=== PATIENT | male | born 2000 | race Hispanic/Latino ===

== ENCOUNTER 2020-03-05 17:40 | Emergency (ER) | payer SELFPAY ==
[~2020-03-05 17:40] MED LIST: Iopamidol-370 76% 500 ML 1 ML ONE
[2020-03-05] MEDS ORDERED: Ibuprofen 200 MG TAB ONE (18:14)
[2020-03-05 18:31] LABS: ALT (SGPT) 16 U/L (8-55); AST (SGOT) 11 U/L (10-45); Albumin 5.1 g/dL (3.5-5.0); Alkaline Phosphatase 89 U/L (50-130); Anion Gap 13 mmol/L (10-20); BUN (Urea Nitrogen) 9 mg/dL (8.4-21.0); Calc. Creatinine Clearance 0 mL/min (70-130); Calcium 9.6 mg/dL (7.8-10.44); Carbon Dioxide 27 mmol/L (22-29); Chloride 103 mmol/L (98-107); Estimated GFR-MDRD Greater than 90; Globulin 3.3 g/dL (2.4-3.5); Glucose 104 mg/dL (70-105); Lipase 22 U/L (8-78); Potassium 3.5 mmol/L (3.5-5.1); Protein, Total 8.4 g/dL (6.0-8.3); Sodium 139 mmol/L (136-145)
--- NOTE | 2020-03-05 18:51 | CT ---
CT ABDOMEN AND PELVIS WITH IV CONTRAST: 03/05/20 INDICATIONS: Abdominal pain. Diarrhea and fever. Comparison made to prior CT abdomen of 03/02/17. FINDINGS: The lung bases are clear. The liver, spleen, and pancreas unremarkable. Adrenal glands appear unremarkable. Horseshoe kidney is again noted which was described on the prior exam. There is no hydronephrosis. Ur inary bladder unremarkable. Small bowel loops normal caliber. The appendix appears normal. Colon unremarkable. No adenopathy or f ree fluid. No mass. Osseous structures unremarkable. IMPRESSION: 1. Horseshoe kidney again noted. 2. No acute process. POS: AGW
[2020-03-05 18:52] LABS: Hemoglobin 15.3 g/dL (14.0-18.0); Mean Corpuscular HGB CONC 34.6 g/dL (32.0-36.0); Mean Corpuscular Hemoglobin 31.8 pg (25.0-35.0); Mean Corpuscular Volume 91.9 fL (78.0-98.0); Mean Platelet Volume 9.7 fL (7.4-10.4); Platelet Count 153 thou/uL (130-400); RBC Distribution Width 11.6 % (11.5-14.5); Red Blood Cell (RBC) Count 4.82 mill/uL (4.00-5.20); White Blood Cell (WBC) Count 22.1 thou/uL (4.8-10.8)
[2020-03-05 19:14] LABS: Band 24 % (5-11); Eosinophils 1 % (0-10); Lymphocytes 5 % (28-48); MDiff Complete? YES; Monocytes 3 % (0-4); Neutrophil 66 % (31-61); Platelet Clumps SLIGHT; Reactive Lymphocytes 1 % (0-10)
--- NOTE | 2020-03-05 19:27 | RAD ---
ONE VIEW CHEST: 03/05/20 HISTORY: Fever, lower abdominal pain. Diarrhea. Nausea, and sore throat. COMPARISON: None. FINDINGS: The cardiac silhouette and pulmonary vasculature are within normal limits. The lungs are clear. [place] structures have a normal appearance. A linear metallic clip overlies the right lung base/right upp er quadrant. IMPRESSION: No acute cardiopulmonary process. POS: SUDARSHAN
[2020-03-05] MEDS ORDERED: Bicillin LA 1.2 MILLION UNITS/2 ML SYRINGE ONE (19:56)
--- NOTE | 2020-03-06 15:03 | EKG ---
Test Reason : Blood Pressure : / mmHG Vent. Rate : 099 BPM Atrial Rate : 099 BPM P-R Int : 148 ms QRS Dur : 094 ms QT Int : 314 ms P-R-T Axes : 017 030 023 degrees QTc Int : 402 ms Normal sinus rhythm Normal ECG Confirmed by RAVINDER CONTRERAS DO ([id number]), telegraph editor IRLANDA BEAR ([id number] on 03/06/2020 3:03:21 PM Referred By: Confirmed By:RAVINDER CONTRERAS DO
== END 2020-03-05 21:25 | disposition home or self-care (01) ==
LOC: ERS 17:40
DX: J02.0 Streptococcal pharyngitis (principal); R10.30 Lower abdominal pain, unspecified; R11.0 Nausea; R19.7 Diarrhea, unspecified; F17.210 Nicotine dependence, cigarettes, uncomplicated
CPT/HCPCS: 71045; 74177; 80053; 83605; 83690; 85025; 87040; 87430; 93005; 96360; 96361; 96372; J0561; Q9967